=== PATIENT | female | born 1945 | race Caucasian/White ===

== ENCOUNTER → 2016-09-03 | Outpatient (CLI) | payer OTHER ==
--- NOTE | 2016-09-04 15:07 | MR ---
MRI of the Left Hip Clinical Indications: Left hip pain. Evaluate for labral tear or arthritis. Technique: T1-weighted and fat-saturated fast T2-weighted sequences were used for axial and coronal imaging of both hips. Fat-saturated proton density sequences over the left hip in 3 planes. Findings: On detailed imaging of the left hip, features of left hip dysplasia are identified. 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 Secondarily, there is a degenerativ e tear of the anterosuperior acetabular labrum. The tear extends from the 2 o'clock position anterosu periorly through the 12 o'clock position, with maceration and slight labral displacement. The remaind er of the acetabular labrum of the left hip is intact. There is moderate diffuse chondral thinning of the weightbearing aspect of the left femoral head and acetabulum, up to grade III severity diffusely . Ligamentum teres is intact. Mild left hip joint effusion is present without associated intra-articu lar loose body. On large [id number] imaging, partial longitudinal split tear of the proximal left hamstring tendon at the ischial tuberosity is noted. The tear involves the deep aspect of both the lateral and medial bands at the ischial tuberosity, with adjacent soft tissue edema and mild associated bone marrow farhat nges. The gluteal tendons are intact over the left hip. Metallic susceptibility artifact from prior right hip arthroplasty is incidentally identified. No per iarticular fluid collection is noted. Symphysis pubis and sacroiliac joints appear normal. No pelvic masses or free fluid. Impression: 1. 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 2. Partial longitudinal split tear proximal left hamstring tendon at the ischial tuberosity. 3. Prior right hip arthroplasty without periarticular fluid collection.
== END ==
LOC: FIMAGING 15:56
PROVIDERS: ATTEND Orthopaedic Surgery
DX: Q65.89 Other specified congenital deformities of hip (principal); S76.812A Strain of other specified muscles, fascia and tendons at thigh level, left thigh, initial encounter

== ENCOUNTER 2016-11-07 07:57 | Inpatient (IN) | payer OTHER ==
[~2016-11-07 07:57] MED LIST: ACETAMINOPHEN 325 MG TAB PO ONE; CEFAZOLIN 2 GM/DEXTR 100 ML IV ONE; CHLORHEXIDINE GLUC HIBICLENS 118 ML BTL TP ONE; DEXAMETHASONE 4 MG/ML VIAL IVP ONE; FAMOTIDINE 20 MG TAB PO ONE; SKIN ADHESIVE (DERMABOND) 1 EACH TP ONE; TRANEXAMIC ACID 3,000 MG in NS 50 ML IRR ONE
[2016-11-07] MEDS ORDERED: FAMOTIDINE 20 MG TAB ONE (08:25)
[2016-11-07] MEDS ORDERED: CEFAZOLIN 2 GM/DEXTROSE/100 ML BAG IV ONE (08:25)
[2016-11-07] MEDS ORDERED: DEXAMETHASONE 4 MG/ML VIAL ONE (08:25)
[2016-11-07] MEDS ORDERED: ACETAMINOPHEN 325 MG TAB ONE (08:25)
[2016-11-07] MEDS ORDERED: ROPI/epiNEPH/KETOROLAC JOINT COCKTAIL IU ONE (08:30)
[2016-11-07] MEDS ORDERED: MIDAZOLAM 2 MG/2 ML VIAL ONE ×2 (08:36→09:50)
[2016-11-07] MEDS ORDERED: fentaNYL 100 MCG/2 ML INJ ONE (08:36)
[2016-11-07] MEDS ORDERED: PROPOFOL/EMULSION 500 MG/50 ML BOTTLE IV ONE (08:37)
[2016-11-07] MEDS ORDERED: LR 1,000 ML IV ONE (09:06)
[2016-11-07] MEDS ORDERED: SCOPOLAMINE HYDROBROMIDE 1.5 MG PATCH TD ONE (09:49)
[2016-11-07] MEDS ORDERED: PHARMACY PAIN CONSULT 1 EA MISC PRN (10:20)
[2016-11-07] MEDS ORDERED: METOCLOPRAMIDE 10 MG/2 ML VIAL IVP PRN (10:20)
[2016-11-07] MEDS ORDERED: PROMETHAZINE HCL 25 MG SUPPR PR PRN (10:20)
[2016-11-07] MEDS ORDERED: ONDANSETRON 4 MG/2 ML VIAL IVP PRN (10:20)
[2016-11-07] MEDS ORDERED: LACTULOSE 20 GM/30 ML UDCUP PO PRN (10:20)
[2016-11-07] MEDS ORDERED: MAGNESIUM HYDROXIDE 30 ML UDCUP PO PRN (10:20)
[2016-11-07] MEDS ORDERED: diphenhydrAMINE 25 MG CAP PO PRN (10:20)
[2016-11-07] MEDS ORDERED: POLYETHYLENE GLYCOL 3350 17 GM PKT PO PRN (10:20)
[2016-11-07] MEDS ORDERED: BISACODYL 10 MG SUPP PR PRN (10:20)
[2016-11-07] MEDS ORDERED: DIPHENOXYLATE/ATROPINE LOMOTIL 1 TAB PO PRN (10:20)
[2016-11-07] MEDS ORDERED: TEMAZEPAM 15 MG CAP PO PRN (10:20)
[2016-11-07] MEDS ORDERED: LR 1,000 ML IV SCH (10:30)
[2016-11-07] MEDS ORDERED: ONDANSETRON 4 MG/2 ML VIAL ONE (10:53)
--- NOTE | 2016-11-07 11:10 | POSTOPPROG ---
Post Op Note Date of Operation: 11/07/16 Surgeon: Cait Cline Doughnut Icer: lizet cline Anesthesiologist: dr. vance Anesthesia: Spinal Pre-op Diagnosis: left hip OA Post-op Diagnosis: same Indication: left hip pain due to OA that failed conservative measures Procedure: L MCKENZIE ant approach Findings: severe hip OA Inf/Abcess present in the surg proc area at time of surgery?: No EBL: 100-500
[2016-11-07 12:39] VITALS: RESP 16
[2016-11-07] MEDS: oxyCODONE IR 5 MG TAB PO PRN ×3 (14:46→23:00)
[2016-11-07] MEDS: ONDANSETRON DISINTEGRATING 4 MG TAB PO PRN ×2 (14:47→20:09)
[2016-11-07] MEDS: ACETAMINOPHEN 325 MG TAB PO SCH ×3 (14:47→23:00)
[2016-11-07] MEDS: CYCLOBENZAPRINE 10 MG TAB PO PRN (14:50)
[2016-11-07] MEDS: ceFAZolin 2 GM/DEXTROSE 100 ML IV SCH ×2 (14:50→21:20)
[2016-11-07] MEDS ORDERED: WARFARIN SODIUM 5 MG TAB PO SCH (16:00)
[2016-11-07] MEDS ORDERED: BACLOFEN 10 MG TAB PO PRN (17:40)
[2016-11-07] MEDS: SENNOSIDES/DOCUSATE SODIUM TAB PO SCH (20:09)
[2016-11-07] MEDS: FAMOTIDINE 20 MG TAB PO SCH (20:09)
[2016-11-08] MEDS: oxyCODONE IR 5 MG TAB PO PRN ×2 (02:21→08:55)
[2016-11-08] MEDS: ONDANSETRON DISINTEGRATING 4 MG TAB PO PRN ×2 (02:23→08:55)
[2016-11-08 05:06] LABS: HEMATOCRIT 31.4 % (38.0-47.0); HEMOGLOBIN 10.4 g/dL (12.6-16.3)
[2016-11-08 05:23] LABS: INR 1.1 (0.83-1.16); PROTIME(PATIENT) 14.1 SEC (12.0-15.0)
[2016-11-08] MEDS: ACETAMINOPHEN 325 MG TAB PO SCH (05:28)
[2016-11-08 08:18] VITALS: BP 115/42; PULSE 59; TEMP 98.4; O2SAT 96
[2016-11-08] MEDS: CYCLOBENZAPRINE 10 MG TAB PO PRN (08:55)
[2016-11-08] MEDS ORDERED: NP THYROID 60 MG PO SCH ×2 (09:00)
[2016-11-08] MEDS ORDERED: ENOXAPARIN 40 MG/0.4 ML SYR SC SCH (09:00)
[2016-11-08] MEDS ORDERED: PARoxetine HCL 10 MG TAB PO SCH (09:00)
[2016-11-08] MEDS: SENNOSIDES/DOCUSATE SODIUM TAB PO SCH (09:22)
[2016-11-08] MEDS: FAMOTIDINE 20 MG TAB PO SCH (09:22)
--- NOTE | 2016-11-08 09:42 | SOAPPROG ---
SOAP Progress Note Assessment/Plan: Assessment: martin is doing well POD 1 s/p L MCKENZIE pain management: pain is well controlled on oral pain meds VTE ppx: recommend coumadin and lovenox, continue JESSICA hose Anemia: level expected initially postop, asymptomatic, continue to monitor D/c planning: D/c to home pending release from PT Plan: 11/08/16 09:41 Subjective: martin is doing well today, denies SOB, chest pain and N/v. Objective: Vital Signs Temp Pulse Resp BP Pulse Ox 36.9 C 59 L 16 115/42 L 96 11/08/16 08:17 11/08/16 08:17 11/08/16 08:17 11/08/16 08:17 11/08/16 08:17 Laboratory Results 11/08/16 04:47 11/07/16 11/08/16 11/09/16 05:59 05:59 05:59 Intake Total 2005 Output Total 3250 200 Balance -1245 -200 PT 14.1 SEC (12.0-15.0) 11/08/16 04:47 INR 1.10 (0.83-1.16) 11/08/16 04:47 LLE: incision dressing is clean and dry, NVI, +pf/df ICD10 Worksheet Patient Problems: Problems Problem Status Onset Primary localized osteoarthritis of left hip Acute
--- NOTE | 2016-11-08 10:04 | GDS ---
[f rep st] DISCHARGE SUMMARY ADMISSION DIAGNOSIS: Left hip osteoarthritis. DISCHARGE DIAGNOSIS: Left hip osteoarthritis. PROCEDURE: Left total hip arthroplasty. VTE PROPHYLAXIS: Coumadin and Lovenox recommended due to allergy to aspirin. BRIEF DESCRIPTION OF HOSPITAL STAY: Patient was admitted for an elective joint arthroplasty. The p atient tolerated the procedure well and has passed physical therapy. The patient was given appropri ate antibiotic prophylaxis and venous thromboembolism prophylaxis. The patient's pain was well cont rolled on oral pain medication, patient was holding down food, and had urinated. Decision was made to discharge the patient. The patient was given post-operative prescriptions pre-operatively. PLAN: Please follow up as scheduled to Dr. Pelaez's office at [facility] on November 27 at 1:45 p.m. /[id number]/MODL
--- NOTE | 2016-11-08 11:24 | GOP ---
[f rep st] OPERATIVE REPORT DATE OF OPERATION: 11/07/2016 SURGEON: Steffanie Pelaez MD NEUROSURGEON: Steffanie Pelaez MD LAN ENGINEER: KAMILAH Canales ANESTHESIA: Spinal. PREOPERATIVE DIAGNOSIS: Left hip osteoarthritis. POSTOPERATIVE DIAGNOSIS: Left hip osteoarthritis. PROCEDURE PERFORMED: Total hip arthroplasty. FINDINGS: ESTIMATED BLOOD LOSS: 200 cc. INDICATIONS: The patient has progressively worsening arthritis of the hip which has failed medical management. The patient understands the treatment options including continued non-operative care and has selected surgical intervention. The patient has decided to undergo total hip arthroplasty via the direct anterior approach, understanding the risks of the procedure including, but not limited to, neurovascular injury, infection, persistent pain, component wear and loosening, deep venous thrombosis, pulmonary embolism, limb length inequality, hip instability (including dislocation), and intra-operative fractures. DESCRIPTION OF PROCEDURE: After proper identification of the patient including verification and marking the surgical site, the patient was brought to the operating room and placed in the supine position. All bony prominences were well padded. Anesthesia was induced without complication and intravenous prophylactic antibiotics were administered prior to skin incision. The operative leg was placed in the Trumpf Arch table extension and the well leg in a Yellofin leg ordonez. The patient was prepped and draped in the usual sterile fashion. The C-arm was draped for intra-operative fluoroscopy to check acetabular position, femoral component position including leg length and femoral offset. Attention was then drawn to surgical exposure of the hip. An incision was made with a #10 Bard Yuriy blade starting 3 cm lateral and 3 cm distal to the anterior superior iliac spine measuring 8-10 cm and coursing distally toward the greater trochanter. The skin and subcutaneous tissues were divided sharply down to the fascia kamla. The fascia kamla was incised in line with the skin incision exposing the underlying tensor fascia kamla muscle. The muscle was bluntly elevated from the fascia and the first extracapsular Cobra retractor was placed laterally at the junction of the superior femoral neck and greater trochanter. The lateral femoral circumflex vessels were identified, cauterized, and divided with the Aquamantys bipolar cautery. The deep investing fascia of the TFL was divided to allow proper mobilization of the muscle preventing damage during the retraction. The reflected head of the rectus femoris muscle was elevated off the anterior hip capsule and a medial Cobra retractor was placed just proximal to the lesser trochanter. The anterior capsulotomy was made sharply from the superolateral acetabulum to the saddle junction of the superior femoral neck and greater trochanter, then coursing inferomedial towards the lesser trochanter. The retractors were then placed in the intracapsular position for femoral neck osteotomy. Corresponding to pre-operative templating, the osteotomy was made with the oscillating saw carefully protecting the greater trochanter and soft tissues. The femoral head was removed from the acetabulum with a corkscrew and confirmed to be severely arthritic with exposed bone, deformity and osteophytes. Similar findings were confirmed in the acetabulum. The Arch table extension was then placed in 40 degrees external rotation. Attention was then drawn to the acetabular preparation. After placement of the anterior and posterior Cobra retractors outside the labrum and intracapsular, the circumferential labrum was removed sharply. The foveal contents were then removed and hemostasis obtained with cautery. The first reamer selected was sized using the removed femoral head. Reaming began with medialization and then commenced in 2 mm increments at 45 degrees of abduction and 15 degrees of anteversion using fluoroscopic navigation. Reaming ceased 1 mm less than the definitive acetabular component and corresponded to the pre-operative templating. The final acetabular component was inserted using fluoroscopy to achieve proper orientation yielding excellent purchase and stability in the acetabulum. The final acetabular liner was then placed and its seating confirmed. Attention was then turned to the femur. The Arch table extension was placed in extension and adduction, delivering the osteotomized femoral neck into the wound. A 2-pronged femoral elevator was placed at the calcar and another at the tip of the greater trochanter. The posterolateral capsule was released with cautery allowing mobilization of the femur lateral and anterior for preparation. The external rotators were visualized and preserved. A curette and rongeur were used to open the starting point for broaching. Serial broaching started with the #0 broach and ended with the broach that exhibited excellent fit in the proximal femur. A change in pitch during mallet strikes was accompanied by the inability to advance the broach any further. The trial reduction was performed and fluoroscopic navigation was utilized to check limb length. Adjustments were made to equalize limb length accordingly. After the final trials were accepted they were removed and the wound was copiously lavaged. The femoral component was seated to the same depth as the final broach and the femoral head was impacted onto the clean trunnion. The hip was then reduced for the final time and once more fluoroscopy was used to check that limb length equality was achieved. The wound was irrigated and closed in layers, the fascia kamla with 2-0 Quill, the subcutaneous tissue with 2-0 Quill, and the skin with Dermabond. Sterile dressings were applied. Final sharps and sponge counts were accurate. The patient was then transferred to a hospital bed and brought to the recovery room in stable condition. IMPLANTS: Accolade II size 4 at 127, acetabular component a 52 mm Tritanium. The liner is a Trident X3 at 32 mm. The head is a Biolox Delta 32 mm +0. /[id number]/MODL MTDD
== END 2016-11-08 12:04 | disposition home or self-care (01) | DRG 470 ==
LOC: F3N 07:57
PROVIDERS: ADMIT Orthopaedic Surgery; ATTEND Orthopaedic Surgery
PROC: 0SRB04A Replacement of Left Hip Joint with Ceramic on Polyethylene Synthetic Substitute, Uncemented, Open Approach (ICD-10-PCS; principal; 2016-11-07 10:15)
DX: M16.12 Unilateral primary osteoarthritis, left hip (principal); E03.9 Hypothyroidism, unspecified
CPT/HCPCS: 97116-GP; 97161-GP; 97165-GO; G8978-GP-CI; G8979-GP-CI; G8980-GP-CI; G8987-GO-CI; G8988-GO-CI; G8989-GO-CI; J0171; J0690; J1100; J1650; J1885; J2250; J2405; J2704; J2795; J3010